=== PATIENT | male | born 1940 | race African-American/Black ===

== ENCOUNTER 2018-12-07 15:50 | Inpatient (IN) | payer OTHER ==
[~2018-12-07] VITALS: Ht 170.2 cm; Wt 109.3 kg
[~2018-12-07 15:50] MED LIST: ACETAMINOPHEN-1 EAC1 PO; AGGRENOX 25 MG1 EACH PO; ALLOPURINOL 10100 M1 PO; APAP500 PO; ARICEPT 5 MG TAB5 MG PO; ASPIR 8181 M1 PO; CARVEDILOL12.5 MG PO; CLARITIN10 MG PO; DIABETA 5MG TABL5 MG PO; FLOMAX0.4 MG PO; GLUCOTROL5 MG PO; HYDRALAZINE 5050 MG PO; HYDROCODONE-AP1 EAC6 PO; IMDUR 60 MG TAB60 M1 PO; IRON325 PO; KLOR-CON 1010 MEQ PO; LASIX 40 MG TAB40 M2 PO; LIPITOR 20 MG T20 M1 PO; LISINOPRIL20 MG PO; METFORMIN HCL500 MG PO; NOVOLOG100 UNIT/1 SUBQ; PLAVIX 75 MG TA75 M1 PO; PRAVACHOL40 MG PO; RANEXA500 MG PO; TOPROL XL100 MG PO; VITAMIN D1000 UNI1 PO
[2018-12-07 15:54] VITALS: BP 147/81
[2018-12-07 17:03] LABS: ABSOLUTE NEUTROPHILS 14.6 thou/uL (1.4-8.2); EOSINOPHILS 0.2 % (0.0-3.0); HEMATOCRIT 36.5 % (42.0-52.0); HEMOGLOBIN 12.1 gm/dL (14.0-18.0); LYMPHOCYTES 17.3 % (24.0-44.0); MCHC 33.1 g/dL (28.0-37.0); MCV 75.6 fL (80.0-100.0); MONOCYTES 6.2 % (1.0-8.0); PLATELET COUNT 329 thou/uL (150-400); POLYS 75.3 % (36.0-66.0); RBC 4.82 mil/uL (4.50-6.00); RDW 20.1 % (10.5-14.5); WBC 19.4 thou/uL (4.0-11.0)
[2018-12-07 17:15] LABS: ANION GAP 7 mmol/L (7-16); BUN 16 mg/dL (7-18); CHLORIDE 101 mmol/L (98-107); CO2 27 mmol/L (21-32); CREATININE 1.7 mg/dL (0.7-1.3); GLUCOSE 186 mg/dL (74-106); POTASSIUM 4.9 mmol/L (3.5-5.1); SODIUM 135 mmol/L (136-145)
[2018-12-07 17:17] LABS: ICTOTEST (BILI CONFIRMATORY) Negative (Negative); URINE BILIRUBIN NEGATIVE (Negative); URINE BLOOD 3+ (Negative); URINE CLARITY CLOUDY; URINE COLOR AMBER; URINE GLUCOSE-RANDOM* NEGATIVE (Negative); URINE KETONES NEGATIVE (Negative); URINE LEUKOCYTES 3+ (Negative); URINE NITRITE POSITIVE (Negative); URINE PROTEIN (DIPSTICK) 2+ (Negative)
[2018-12-07 17:24] LABS: CASTS None Seen /LPF (None Seen); CRYSTALS None Seen /LPF (None Seen); SQUAMOUS None Seen /LPF (0-3); URINE RBC >20 Many /HPF (0-2)
[2018-12-07 17:25] LABS: ALBUMIN 3.3 g/dL (3.4-5.0); LIPASE 74 U/L (73-393); SGOT 31 U/L (15-37); SGPT 26 U/L (30-65); TOTAL BILIRUBIN 0.7 mg/dL (<0.1-1.0); TOTAL PROTEIN 7.9 g/dL (6.4-8.2); TROPONIN-I <0.06 ng/mL (<0.06)
[2018-12-07 18:20] LABS: ANISOCYTOSIS 1+; POLYCHROMASIA OCCASIONAL
[2018-12-07 18:21] LABS: TARGET CELLS OCCASIONAL
[2018-12-07 18:22] LABS: LARGE PLATELETS OCCASIONAL; MICROCYTES 1+
[2018-12-07 18:42] VITALS: BP 151/74
--- NOTE | 2018-12-07 20:59 | NUR ---
ATTEMPTED TO CALL REPORT AT 2044. NURSE NOT AVAILABLE AND IS TO CALL BACK
[2018-12-07 21:23] VITALS: BP 159/72
[2018-12-07 22:03] VITALS: BP 162/81
[2018-12-07] MEDS ORDERED: AMLODIPINE BESY10 MG PO (22:51)
[2018-12-07] MEDS ORDERED: LIPITOR 20 MG T20 M1 PO (22:53)
[2018-12-07] MEDS ORDERED: COLACE100 MG PO (22:54)
[2018-12-07] MEDS ORDERED: RENA-VITE RX T1 EACH PO (22:55)
[2018-12-07] MEDS ORDERED: FOLGARD TABLET1 EAC1 PO (22:56)
[2018-12-07] MEDS ORDERED: LANTUS100 UNIT/M SUBQ (22:57)
[2018-12-08] VITALS (7 sets, daily range): BP systolic 109–153; BP diastolic 61–85
--- NOTE | 2018-12-08 02:36 | NUR ---
Admission history and assessments completed. Careplan initiated. IVfluids infusing. Incontinent of bowel and bladder. External male catheter placed. Turned to sides. High fall risks, fall precautions in place. Patient has dementia, confused, unable to sign consent forms.
--- NOTE | 2018-12-08 04:20 | NUR ---
Temp spiked to 101.4 orally. Treated with Tylenol. Patient on abx and blood cultures done on admission.
[2018-12-08 05:49] LABS: ABSOLUTE NEUTROPHILS 14.5 thou/uL (1.4-8.2); BASOPHILS 0.3 % (0.0-2.0); HEMATOCRIT 33.2 % (42.0-52.0); HEMOGLOBIN 11.2 gm/dL (14.0-18.0); MCH 25.2 pg (26.0-34.0); MCHC 33.7 g/dL (28.0-37.0); MCV 74.7 fL (80.0-100.0); MONOCYTES 8.8 % (1.0-8.0); PLATELET COUNT 281 thou/uL (150-400); POLYS 75.9 % (36.0-66.0); RBC 4.44 mil/uL (4.50-6.00); RDW 20.1 % (10.5-14.5); WBC 19.1 thou/uL (4.0-11.0)
--- NOTE | 2018-12-08 05:51 | NUR ---
Paroxysmal SVT rate up to 140/on [facility]. Rhythm back to sinus when EKG done. Fever down to 100.5
[2018-12-08 05:57] LABS: CALCIUM 8.6 mg/dL (8.5-10.1); CREATININE 1.8 mg/dL (0.7-1.3); MAGNESIUM 1.6 mg/dL (1.8-2.4)
[2018-12-08 06:12] LABS: POTASSIUM 3.8 mmol/L (3.5-5.1)
[2018-12-08 08:06] LABS: CHOLESTEROL 91 mg/dL (<200); HDL CHOLESTEROL 35 mg/dL (>40); LDL CHOLESTEROL 43 mg/dL (<100); TC:HDL 2.6 Ratio (Not establshd); TRIGLYCERIDE 67 mg/dL (<150); VLDL 13 mg/dL (<40)
--- NOTE | 2018-12-08 08:27 | EKG ---
[address] [address] ELECTROCARDIOGRAM REPORT Name: LUIS MANUEL RIZO Room #: 355-P ADM IN M.R.#: [id number] Admission: 12/07/18 Attend Phys: Jameel Oreilly MD Discharge: Date of : 36 Report #: [id number] THIS REPORT FOR: //name// [facility] ED Test Date: 2018-12-07 Test Time: 16:08:45 Pat Name: LUIS MANUEL RIZO Department: Room: 355 Gender: M Digital Project Coordinator: ND : 1940 Requested By: Kory Oneill Order Number: [id number] MD: Eladio Smith Measurements Intervals [place] Rate: 101 P: 17 [place]: 199 QRS: -52 QRSD: 121 T: 100 QT: 356 QTc: 462 Interpretive Statements Sinus tachycardia Atrial premature complex Right ventricular conduction delay Nonspecific T abnormalities Baseline wander in lead(s) V2 Compared to ECG 06/23/2014 07:24:54 Atrial premature complex(es) now present Nonspecific change in the ST and T-wave segments Electronically Signed On 12-08-2018 8:26:41 CDT by Eladio Smith [email or web address] <ELECTRONICALLY SIGNED> By: Eladio Smith MD, [facility] 12/08/18 0826 1608 1608 Eladio Smith MD, [facility] /EPI
--- NOTE | 2018-12-08 08:34 | EKG ---
[address] [address] ELECTROCARDIOGRAM REPORT Name: LUIS MANUEL RIZO Room #: 355-P ADM IN M.R.#: [id number] Admission: 12/07/18 Attend Phys: Jameel Oreilly MD Discharge: Date of : 38 Report #: [id number] THIS REPORT FOR: //name// [facility] Test Date: 2018-12-08 Test Time: 05:51:39 Pat Name: LUIS MANUEL RIZO Department: Room: 355 P Gender: M Twist Tester: [id number] : 1940 Requested By: Katie Lawler Order Number: [id number] MD: Eladio Smith Measurements Intervals [place] Rate: 102 P: 45 [place]: 187 QRS: -50 QRSD: 129 T: 103 QT: 364 QTc: 475 Interpretive Statements Sinus tachycardia Atrial premature complexes Early R-wave progression Left anterior hemiblock Nonspecific T abnormalities Compared to ECG 06/23/2014 07:24:54 Atrial premature complex(es) now present Electronically Signed On 12-08-2018 8:34:29 CDT by Eladio Smith [email or web address] <ELECTRONICALLY SIGNED> By: Eladio Smith MD, [facility] 12/08/18 0834 0551 0551 Eladio Smith MD, [facility] /EPI
[2018-12-08] MEDS ORDERED: CARVEDILOL3.125 MG PO (09:07)
[2018-12-08] MEDS ORDERED: LISINOPRIL10 MG PO (09:09)
[2018-12-08] MEDS ORDERED: VITAMIN D1000 UNI1 PO (09:11)
[2018-12-08] MEDS ORDERED: NOVOLOG100 UNIT/1 SUBQ (09:11)
[2018-12-08] MEDS ORDERED: GLUCAGEN1 M2 INJECTION (09:14)
[2018-12-08] MEDS ORDERED: IPRAT-ALBUT 0.5-3 ML INH (09:15)
[2018-12-08] MEDS ORDERED: HYDRALAZINE 2525 M1 PO (09:17)
[2018-12-08] MEDS ORDERED: SENNA PLUS TAB1 EACH PO (09:18)
[2018-12-08] MEDS ORDERED: BISACODYL10 MG RECTAL (09:19)
--- NOTE | 2018-12-08 09:41 | NUR ---
Nutrition: Pt admitted with AMS, Sepsis related to UTI. Notified of low regina score. No active wounds, all healed per nsg. Right sided droop, CT head negative. No weight hx, currently BMI 37 obesity class 2. Hx dementia, DM, CVA, CABG. Currently confused and inappropriate to interview. Ate 1 biscuit at breakfast this am on regular diet. BG 159-174 with hx of DM. Consider add carb controlled if po improves/BG remain elevated. Will follow for adequacy of intake but place as low risk at this time.
--- NOTE | 2018-12-08 12:25 | NUR ---
Patient if from [facility], dp sent [facility] information on lakesha alvarez unknown at this time. DP contacted Jaswinder from [facility] to let her know.
--- NOTE | 2018-12-08 13:22 | NUR ---
INITIAL ASSESSMENT: Received consult as pt is from [facility]. LINDA reviewed chart and spoke with nursing and attending physician. Pt was admitted due to AMS/UTI/Sepsis. Pt with hx of Dementia/CVA/DM. Pt was febrile earlier today. LINDA spoke with pt's sister, Kemar, via phone. Introduced role of LINDA. 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 Pt has lived at [facility] for about 4 1/2 years. Pt is normally w/c bound. Kemar confirms plan is to return to [facility] when medically stable. internet media planner to send info to [facility] for review. LINDA is following to assist as needed with discharge planning.
[2018-12-08 15:32] LABS: TSH 1.059 uIU/mL (0.358-3.740)
--- NOTE | 2018-12-08 18:43 | NUR ---
PT MORE ALERT THIS AFTERNOON, PT TURNED THROUGHOUT THE DAY AND EXTERNAL CATHETER IN PLACE DRAINING WELL.
[2018-12-09 03:20] VITALS: BP 119/63
--- NOTE | 2018-12-09 03:27 | NUR ---
ASSUMED CARE FROM DAY SHIFT , PT RESTING IN BED , TURNED EVERY 2 HOURS PT YELLS AND CURSING WHEN TURNED , IV FLUIDS INFUSING WELL PER PUMP , DIRECTOR FIXED INCOME SHOWS NSR WITH EPISODES OF SVT VSS PT TOLERATING WELL. PT RESTED WELL THROUGHOUT HOURLY ROUNDS, WILL CONINTUE TO MONITOR AND WILL REPORT CHANGES OR ABNORMAL FINDINGS.
[2018-12-09 07:48] VITALS: BP 123/66
--- NOTE | 2018-12-09 12:07 | NUR ---
ENRIQUE called Cristiane from [facility] to let her know patient will likely dc this Wednesday, and they can take him back if he does go then.
--- NOTE | 2018-12-09 12:42 | NUR ---
LINDA reviewed chart and spoke with nursing and attending physician. Pt is progressing towards goals for discharge. Possible weekend discharge anticipated back to [facility]. medical planner notified [facility] liaison, who confirms they are able to accept pt if he is ready for discharge. LINDA left voice message for pt's sister, Kemar ([phone]) to provide update and notify of anticipated discharge timeframe. Chart will need to be copied and final discharge orders/summary and will need to be faxed to [facility] when available. LINDA is available to assist as needed with discharge planning. [facility]-- (Admissions) [phone] (Facility)
--- NOTE | 2018-12-09 13:06 | NUR ---
PT A&OX2-3 SLIGHT CONFUSION, MRI COMPLETED TODAY, TOLERATING DIET, MEDICATION/FLUIDS GIVEN ORDERED. EXTERNAL CATH IN PLACE, URINE TEA COLERED, NO COMPLAINTS OF BURNING OR S/S R/T UTI. PATIENT TO DISCHARGE TO . WILL CONTINUE TO MONITOR.
[2018-12-09 13:55] LABS: HEMATOCRIT 31.1 % (42.0-52.0); HEMOGLOBIN 10.3 gm/dL (14.0-18.0); MCH 25.1 pg (26.0-34.0); MCHC 33.3 g/dL (28.0-37.0); MCV 75.5 fL (80.0-100.0); RBC 4.11 mil/uL (4.50-6.00); RDW 20.2 % (10.5-14.5); WBC 16.5 thou/uL (4.0-11.0)
[2018-12-09 14:03] LABS: CALCIUM 8.5 mg/dL (8.5-10.1); CREATININE 1.8 mg/dL (0.7-1.3); MAGNESIUM 1.7 mg/dL (1.8-2.4); POTASSIUM 4.2 mmol/L (3.5-5.1)
[2018-12-09 15:15] VITALS: BP 118/66
[2018-12-09 17:16] VITALS: BP 148/65
--- NOTE | 2018-12-09 18:38 | NUR ---
PT ARRIVED ON UNIT AT 1710. PT ALERT XS 4. NO PAIN OR RESP DISTRESS, VS TAKEN AND IN CHART. IV FLUIDS INFUSING ORDERED. BLOOD SUGAR CHECKED, S/S NOT INDICATED. CONDOM CATH TO D/D. PT SERVED DINNER. HAS RIGHT UPPER ARM IV.
[2018-12-09 20:50] VITALS: BP 129/60
[2018-12-10 03:35] VITALS: BP 146/64
--- NOTE | 2018-12-10 07:33 | NUR ---
PT IS ALERT TO SELF AND PLACE. FORGETFUL-COULD NOT TELL THE YEAR NOR NAME OF HOSPITAL. PT HAS SOME DIFFICULTY IN SPEECH.SOME SLURRING. NO SWALLOWING ISSUES. SOME WEAKNESS TO R SIDE. PT NEEDS ASSISTANCE TO REPOSITION. [place] CATH IN PLACE WITH ADEQUATE URINE OUTPUT.AFEBRILE. EDEMA TO BLE-ELEVATED ON PILLOWS. PT CONTINUES ON IVF. FALL PREC IN PLACE, HE CALLS FOR HELP. NO FURTHER CONCERNS.
[2018-12-10 07:52] LABS: HEMATOCRIT 29.8 % (42.0-52.0); HEMOGLOBIN 9.8 gm/dL (14.0-18.0); MCH 24.7 pg (26.0-34.0); MCHC 32.9 g/dL (28.0-37.0); MCV 75.1 fL (80.0-100.0); RBC 3.97 mil/uL (4.50-6.00); RDW 20.4 % (10.5-14.5); WBC 11.2 thou/uL (4.0-11.0)
[2018-12-10 07:53] VITALS: BP 141/69
[2018-12-10 08:04] LABS: CALCIUM 8.6 mg/dL (8.5-10.1); CREATININE 1.5 mg/dL (0.7-1.3); MAGNESIUM 1.7 mg/dL (1.8-2.4); POTASSIUM 3.9 mmol/L (3.5-5.1)
--- NOTE | 2018-12-10 18:30 | NUR ---
Patient has spent the entire shift in bed. He is able to turn et reposition himself minimally. Patient has consumed 100% of all meals. He was given a bed bath. His Condom Catheter burst at the penile tip, therefore, a new catheter has been put into place. Patient has no open areas on his skin. Patient's IV Normal Saline 0.9% has been put on hold until further notice. Will continue to monitor and report to on-coming nurse.
--- NOTE | 2018-12-10 19:26 | NUR ---
PT ALERT XS 2-3 HAS FORGETFULNESS AT TIMES. BLOOD SUGARS CHECKED AND S/S INSULIN ORDERED. PT'S FAMILY HERE TO VISIT. IV FLUIDS ON HOLD. WAS GIVEN IV MAG TODAY LAB ORDERED TO HAVE MAG CHECKED.
[2018-12-10 21:37] VITALS: BP 140/74
--- NOTE | 2018-12-11 03:27 | NUR ---
ASSESMENT COMPLETED.PT DENIED PAIN SO FAR.CONDOM CATH STILL IN PLACE.PT REF INSULIN AT HS.IVF STIL ON HOLD.PT REPOSITIONED WHILE IN BED.PT RESTING ON HIS BED AT THIS TIME.FALL PREACUTIONS IN PLACE,CALL LIGHT WITHIN REACH.
[2018-12-11 04:00] VITALS: BP 170/82
[2018-12-11 05:13] LABS: HEMATOCRIT 30.5 % (42.0-52.0); HEMOGLOBIN 10.3 gm/dL (14.0-18.0); MCH 25.2 pg (26.0-34.0); MCHC 33.6 g/dL (28.0-37.0); RBC 4.07 mil/uL (4.50-6.00); RDW 20.2 % (10.5-14.5); WBC 9.8 thou/uL (4.0-11.0)
[2018-12-11 05:32] LABS: CALCIUM 8.6 mg/dL (8.5-10.1); CREATININE 1.5 mg/dL (0.7-1.3); MAGNESIUM 2.1 mg/dL (1.8-2.4); POTASSIUM 4.2 mmol/L (3.5-5.1)
[2018-12-11 07:40] VITALS: BP 173/83
--- NOTE | 2018-12-11 10:50 | NUR ---
ASSUMED CARE AT 0710, SHIFT ASSESSMENT DONE, BP ELEVATED, BP MEDS GIVEN THIS AM. DENIES PAIN, NAUSEA, VOMITING. Q2T PER DOCUMENTATION. FACILITY INDICATED THEY ARE ABLE TO ACCEPT PT TODAY, DR LIPSCOMB NOTIFIED. WILL PUT IN DC ORDER, NURSE TO CALL [facility] TO ARRANGE FOR TRNASPORTATION.
[2018-12-11] MEDS ORDERED: CEFDINIR300 MG PO (12:08)
[2018-12-11 15:35] VITALS: BP 137/61
[2018-12-11 17:48] VITALS: BP 137/61
--- NOTE | 2018-12-11 18:04 | NUR ---
Transportation called and stated will pick patient up with stretcher van between [id number]. Pt aware.
== END 2018-12-11 18:39 | DRG 872 ==
LOC: ER 15:50 → 3W 18:41 → EROBS 18:41 → 3W 21:22 → 4E 12-09 16:45
PROVIDERS: Emergency Medicine; Nurse Practitioner; ADMIT Internal Medicine
DX: A41.9 Sepsis, unspecified organism (principal); N39.0 Urinary tract infection, site not specified; N17.9 Acute kidney failure, unspecified; R29.810 Facial weakness; I25.10 Atherosclerotic heart disease of native coronary artery without angina pectoris; F03.90 Unspecified dementia, unspecified severity, without behavioral disturbance, psychotic disturbance, mood disturbance, and anxiety; N40.0 Benign prostatic hyperplasia without lower urinary tract symptoms; E78.5 Hyperlipidemia, unspecified; Z66 Do not resuscitate; I12.9 Hypertensive chronic kidney disease with stage 1 through stage 4 chronic kidney disease, or unspecified chronic kidney disease; N18.9 Chronic kidney disease, unspecified; E11.22 Type 2 diabetes mellitus with diabetic chronic kidney disease; Z86.73 Personal history of transient ischemic attack (TIA), and cerebral infarction without residual deficits; Z95.1 Presence of aortocoronary bypass graft; I25.2 Old myocardial infarction; Z87.891 Personal history of nicotine dependence; Z79.899 Other long term (current) drug therapy; Z79.4 Long term (current) use of insulin; Z79.82 Long term (current) use of aspirin; Z79.84 Long term (current) use of oral hypoglycemic drugs
CPT/HCPCS: 10783; 10879

== ENCOUNTER 2018-12-27 14:21 | Inpatient (IN) | payer OTHER ==
[~2018-12-27] VITALS: Ht 172.7 cm; Wt 115.8 kg
--- NOTE | ~2018-12-27 | EEG ---
[facility] [place] [address] ELECTROENCEPHALOGRAM Name: LUIS MANUEL RIZO Room #: 207-P ADM IN M.R.#: [id number] Admission: 12/27/18 Attend Phys: Pebbles Cheney Discharge: Date of : 38 Report #: [id number] THIS REPORT FOR: //name// CC: Pebbles Austin DATE OF SERVICE: 12/28/2018 This patient is being evaluated for altered mental status. EEG was done by placing the electrodes by standard 10-20 system of electrode placement. Both referential and sequential montages were used for recording. Background activity in this patient's EEG is about 8-9 Hz and 30 microvolt. The patient became drowsy and that is associated with bilateral slowing and vertex sharp waves. Photic stimulation is unremarkable. Even in the baseline, the patient appeared to have intermittent slowing, which is intermixed with the background. IMPRESSION: Moderately abnormal EEG because it is intermixed with theta range slowing. That is a nonspecific abnormality, which can occur with encephalopathy, effect of psychotropic medication, dementia, etc. No active epileptiform activity was noticed during this record. Thank you very much for this referral. By: 1842 1855 Salinas Gonzalez MD /nt
--- NOTE | ~2018-12-27 | HC ---
[facility] [place] [address] CONSULTATION Name: LUIS MANUEL RIZO Room #: 207-P ADM IN M.R.#: [id number] Admission: 12/27/18 Attend Phys: Pebbles Patrick Discharge: Date of : 38 Report #: [id number] THIS REPORT FOR: //name// CC: [facility] DATE OF SERVICE: 12/27/2018 HISTORY OF PRESENT ILLNESS: This is an 78-year-old male patient who was seen by me for altered mental status. The patient is not in a good mood. He was pretty irritable. He will not give me a history, and I tried to find out why he is not feeling good, but he did not give me a good history and he did not cooperate. I do not know how long his memory problem is going on. It looks like he was here in the hospital in December. He was seen by Dr. Hunt for neurological consultation. At that time, he was admitted with urinary tract infection. He did have an MRI at that time and the MRI indicated chronic changes, but no acute changes. The history I got is from the record because the patient neither cooperates with the examination nor gives a good history. REVIEW OF SYSTEMS: Indicate the patient had some altered mental status. One of the records indicates he has a prior history of IV drug abuse. He has a history of CO, hypertension, dementia, coronary artery disease, diabetes. He had some chronic cerebellar stroke. That was his 14-point review of system, the best I can carry out because he does not cooperate. PAST MEDICAL HISTORY: Appeared to be positive for dementia. FAMILY HISTORY: Negative for early age stroke. SOCIAL HISTORY: He has smoked in the past. PHYSICAL EXAMINATION: Indicates he is alert. His speech is intact, but when I asked him what month it is, he becomes agitated and does not give any answer. He did not tell me what hospital he is in. His cranial nerve examination was attempted and he did not cooperate, but I did not see any focality. He moves all 4 extremities. He has a depigmentation in the lower extremities. He moves all 4 extremities slowly. I tried to do the position sense; he will not cooperate, neither he will cooperate with the cerebellar sign. Cardiac examinations appear noncontributory. He does not appear to be in any respiratory difficulty. Pulses are difficult to feel. His blood pressure is 122/68, pulse is 80, temperature is 98.6. LABORATORY DATA: His white count is normal at 8.9. Urine is negative. He did have a CT scan of the head on admission that did not show any acute changes. CT angiography was also done, looks like in the Emergency Room, that shows multiple abnormalities, but nothing which can explain the patient's symptoms. He had a [facility] [address] [place] [address] CONSULTATION Name: LUIS MANUEL RIZO DAVID Room #: 207-P [facility] IN M.R.#: [id number] Admission: 12/27/18 Attend Phys: Pebbles Patrick Discharge: Date of : 38 Report #: [id number] TSH and vitamin B12 done recently and that was unremarkable. IMPRESSION: This patient appeared to have a significant dementia. I think the main thing which needs to be addressed is how aggressive to be on him and his living arrangement. I do not think he is safe to live alone, but we will try to reexamine him tomorrow and see if we can get anywhere. We will also try to get a neuropsychological evaluation to see if anything can be done in that regard. By: 1257 0008 Salinas Gonzalez MD /nt
[~2018-12-27 14:21] MED LIST changes: +AMLODIPINE BESY10 MG PO; +BISACODYL10 MG RECTAL; +CARVEDILOL3.125 MG PO; +CEFDINIR300 MG PO; +COLACE100 MG PO; +FOLGARD TABLET1 EAC1 PO; +GLUCAGEN1 M2 INJECTION; +HYDRALAZINE 2525 M1 PO; +IPRAT-ALBUT 0.5-3 ML INH; +LANTUS100 UNIT/M SUBQ; +LISINOPRIL10 MG PO; +RENA-VITE RX T1 EACH PO; +SENNA PLUS TAB1 EACH PO
[2018-12-27 14:22] VITALS: BP 115/58
[2018-12-27 14:50] LABS: HEMOGLOBIN 9.8 gm/dL (14.0-18.0); MCH 25.5 pg (26.0-34.0); MCHC 33.6 g/dL (28.0-37.0); MCV 75.9 fL (80.0-100.0); PLATELET COUNT 266 thou/uL (150-400); RBC 3.83 mil/uL (4.50-6.00); RDW 20.6 % (10.5-14.5); WBC 8.9 thou/uL (4.0-11.0)
[2018-12-27 15:04] LABS: ANION GAP 10 mmol/L (7-16); BUN 20 mg/dL (7-18); CALCIUM 9.2 mg/dL (8.5-10.1); CHLORIDE 102 mmol/L (98-107); CO2 25 mmol/L (21-32); CREATININE 1.8 mg/dL (0.7-1.3); GLUCOSE 134 mg/dL (74-106); POTASSIUM 3.7 mmol/L (3.5-5.1); SODIUM 137 mmol/L (136-145)
[2018-12-27 15:13] LABS: MAGNESIUM 1.9 mg/dL (1.8-2.4); TROPONIN-I <0.06 ng/mL (<0.06)
[2018-12-27 15:16] LABS: ABSOLUTE NEUTROPHILS 2.9 thou/uL (1.4-8.2); ANISOCYTOSIS 1+; HYPOCHROMASIA SLIGHT; MICROCYTES 1+
[2018-12-27 16:27] LABS: URINE BILIRUBIN NEGATIVE (Negative); URINE BLOOD NEGATIVE (Negative); URINE CLARITY CLEAR; URINE COLOR YELLOW; URINE GLUCOSE-RANDOM* NEGATIVE (Negative); URINE KETONES NEGATIVE (Negative); URINE LEUKOCYTES-REFLEX NEGATIVE (Negative); URINE NITRITE-REFLEX NEGATIVE (Negative); URINE PROTEIN (DIPSTICK) TRACE (Negative); URINE SPECIFIC GRAVITY >= 1.030 (1.005-1.035)
[2018-12-27 16:35] LABS: AMP/METHAMP Negative (Negative); BARBITURATES Negative (Negative); BENZODIAZEPINES Negative (Negative); COCAINE Negative (Negative); METHADONE Negative (Negative); OPIATES Negative (Negative); PCP Negative (Negative)
[2018-12-27 18:03] VITALS: BP 139/71
[2018-12-27 18:45] VITALS: BP 140/54
[2018-12-27 20:00] VITALS: BP 133/62
[2018-12-28] VITALS: BP 148/67
[2018-12-28 03:36] VITALS: BP 152/72
--- NOTE | 2018-12-28 05:02 | NUR ---
ASSESSMENT: PT ARRIVED EARLIER TO THE UNIT AT APPROXIMATEY 2000 FROM ED, ACCOMPANIED BY STAFF MEMBERS. PT IS ALERT TIMES 1-2. CAN BE FORGETFUL AND CONFUSED AT TIMES. DID NOT KNOW THE NAME OF THE HOSPITAL, TOOK HIM A WHILE TO STATE HIS SISTERS NAME WHICH IS HIS BPOA. VSS, AFEBRILE. BP SLIGHTLY ELEVATED. PT IS FUSSY AND IS ADAMANT ABOUT NOT HAVING A SECOND IV PLACED FOR CT OF HEAD WITH CONTRAST. CURRENT IV WORKED AFTER A LOT OF ENCOURAGEMENT WAS GIVEN. PT IS INCONTINENT FOR BOWEL AND BLADDER, A CONDEM CATHETER PLACED. DID HAVE A MEDIUM BM. PT IS A DNR. BING BROWN WAS AT THE BEDSIDE. SR PER MONITOR, WILL CONTINUE TO MONITOR.
[2018-12-28 07:29] VITALS: BP 138/72
--- NOTE | 2018-12-28 08:02 | EKG ---
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
[2018-12-28 11:40] VITALS: BP 122/68
--- NOTE | 2018-12-28 13:46 | NUR ---
Attempted to meet with patient who was transporting to scan. Patient admits from [facility] with possible seizures. Patient with recent dc Dec 11/2019 from [facility]. Patient has dementia. Sp with Sister Kemar and reviewed role of casemgt. Plan to update [facility] patient is ltc at facility. Casmemgt following.
[2018-12-28 16:42] VITALS: BP 130/72
--- NOTE | 2018-12-28 16:58 | NUR ---
ASSUMED CARE OF PT SHIFT CHANGE. ASSESSMENTS CHARTED. MEDS GIVEN PER MAR. PT ORIENTED TO SELF AND SOMETIMES PLACE. INCONTINENT OF BOWEL AND BLADDER. CONDOM CATHETER IN PLACE. NO C/O PAIN. ON RA WITH NO SOB OBSERVED. WILL CONTINUE TO MONITOR AND FOLLOW POC.
[2018-12-28 19:45] VITALS: BP 145/73
--- NOTE | 2018-12-28 23:24 | NUR ---
RECEIVED PT'S CARE AT 1920; PT. ON BED; ALERT; AWAKE; WATCHING TV; DURING ASSESSMENT NO C/O PAIN; ALERT TO PERSON; HS MEDICATION GIVEN; ST. "I AM WAITING FOR MY DINNER"; INFORMED DINNER ATE EARLIER; SNACKS GIVEN; COMPLETE BED CHAGED; INCONTINEN; HAD BM; AROUND 2200 CARE TRANSFER TO NURSE OLSON;
[2018-12-29 04:19] VITALS: BP 127/62
[2018-12-29 08:00] VITALS: BP 150/78
--- NOTE | 2018-12-29 10:40 | NUR ---
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 Chart copy in progress. DC associate merchandise planner to fax orders and arrange stretcher transport. Nursing to call report. Bait Maker has notified his sister Kemar Hall of his dc and [facility]. She will let the rest of his family know and she will try to see him there later today.
[2018-12-29 11:16] LABS: CALCIUM 8.9 mg/dL (8.5-10.1); CREATININE 1.8 mg/dL (0.7-1.3); POTASSIUM 3.8 mmol/L (3.5-5.1)
[2018-12-29 11:40] VITALS: BP 119/59
--- NOTE | 2018-12-29 12:14 | NUR ---
PT CARE ASSUMED APPROX 0700. PT ALERT AND ORIENTED X1 SELF ONLY. FOLLOWS COMMANDS. PT DENIES PAIN AND SOA. VSS. BS WNL. REFUSED TO TURN THIS AM. PT TO DISCHARGE AT THIS TIME. REPORT CALLED TO RECEIVING FACILITY. RECEIVING NURSE DENIES QUESTIONS OR CONCERNS REGARDING HANDOFF INFO. IV OUT, TELE OFF. CHART COPIED AND TO TRAVEL WITH PT VIA STRETCHER VAN. CASE MANAGEMENT REPORTS HAVING SPOKEN TO FAMILY REGARDING DISCHARGE. NO DISTRESS NOTED. ALL BELONGINGS IN PACKED AND IN BED WITH PT.
[2018-12-29 14:45] VITALS: BP 149/74
== END 2018-12-29 17:52 | DRG 72 ==
LOC: ER 14:21 → EROBS 17:53 → 2N 17:53
PROVIDERS: Emergency Medicine; Psychiatry & Neurology Neuromuscular Medicine; ADMIT Hospitalist
DX: G93.41 Metabolic encephalopathy (principal); R56.9 Unspecified convulsions; F03.90 Unspecified dementia, unspecified severity, without behavioral disturbance, psychotic disturbance, mood disturbance, and anxiety; N18.3 Chronic kidney disease, stage 3 (moderate); I25.10 Atherosclerotic heart disease of native coronary artery without angina pectoris; E11.22 Type 2 diabetes mellitus with diabetic chronic kidney disease; F14.90 Cocaine use, unspecified, uncomplicated; M19.90 Unspecified osteoarthritis, unspecified site; D50.9 Iron deficiency anemia, unspecified; I12.9 Hypertensive chronic kidney disease with stage 1 through stage 4 chronic kidney disease, or unspecified chronic kidney disease; N18.9 Chronic kidney disease, unspecified; Z79.82 Long term (current) use of aspirin; Z79.899 Other long term (current) drug therapy; I25.2 Old myocardial infarction; Z95.1 Presence of aortocoronary bypass graft; Z86.73 Personal history of transient ischemic attack (TIA), and cerebral infarction without residual deficits; Z87.891 Personal history of nicotine dependence
CPT/HCPCS: 10081

== ENCOUNTER 2020-04-23 20:29 | Emergency (ER) | payer OTHER, MEDICAID ==
[~2020-04-23] VITALS: Ht 165.1 cm; Wt 106.6 kg
--- NOTE | ~2020-04-23 | EMS ---
[address] [address] EMS Patient Care Report Name: LUIS MANUEL RIZO Room #: DEP ANDREZ Jerome#: [id number] Admission: 04/23/20 Attend Phys: Discharge: 04/24/20 Date of : 36 Report #: [id number] THIS REPORT FOR: //name// Report Transmitted: 04/24/2020 07:02 EMS Care Summary [facility] MED-ACT Incident [id number] @ 04/23/2020 19:41 Incident Location [address] [place] [address] Patient LUIS MANUEL RIZO Male, 79 Years 1940 Patient Address [address] [place] [address] Patient History Angina,Congestive Heart Failure (CHF),Hypertension (HTN),Stroke/CVA,Substance Abuse,Hyperlipidemia,Arthritis,Anemia,Chronic Kidney Disease,Type 2 Diabetes, Patient Allergies No known allergies, Patient Medications Coreg, Tylenol, Tamsulosin, DuoNeb, Cholecalciferol, Docusate Sodium, Albuterol, Famotidine, Glucagon, Senna, Apixaban, Atorvastatin, Amlodipine, Lantus, Ferrous Sulfate, Loratadine, Aspirin, Novolog, Aricept, Chief Complaint Unconscious/ Unresponsive Disposition Transported No Lights/[place] Dispatch Reason Unconscious/Fainting Transported To [address] [address] EMS Patient Care Report Name: LUIS MANUEL RIZO Room #: DEP [facility]#: [id number] Admission: 04/23/20 Attend Phys: Discharge: 04/24/20 Date of : 36 Report #: [id number] Narrative Paramedics requested for an 79yom that healthcare providers state is unresponsive. On arrival, paramedics don their appropriate PPE and attempt entrance into the facility. Access is not immediately obtained, therefore, there is a delay in patient contact. Paramedics are escorted to the room of the patient who is found laying in bed, supine, and obtunded. He does not respond to verbal or painful stimuli and has sonorous, labored breathing. His initial SpO2 is less than 85% on room air and paramedics immediately begin to prepare for supplemental oxygen delivery. 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 On arrival to their unit, he began complaining of pain and complained to multiple providers before, the fire chief's aide administered 2x Tylenol. He was responsive and conversable at that time. They do not know how long he has been unresponsive and in respiratory distress progressing to respiratory failure. The patient's pupils are appreciated to be constricted and the staff is questioned regarding narcotic use and/or administration. They state they have not given the patient narcotics. On his medical history, it does say the patient has a history of cocaine abuse and he had a visitor earlier in the day. His roommate, however, adamantly believes that he has not done any illicit drugs. With intermittent ventilatory assist, IV access is attempted and failed. It is determined that the patient is to be given Narcan intranasally as documented in this report. After the 1st administration of 1mg of Narcan IN, the patient becomes more arousable and begins to breathe on his own more appropriately. He still has periods of apnea where assisted ventilation is required. It is then determined, the patient should be given a 2nd dose of 1mg of Narcan IN. This dose wakes him up completely and he begins to track paramedics during the course of his care. He is moved to the stretcher via a draw sheet pull and makes incomprehensible sounds of pain during the transfer. He is restrained according to local protocol. On arrival in the ambulance, the patient is placed back on the monitor for VS and cardiac monitoring during transport. He is completely alert but refuses to answer questions at all. He is responsive to his name; however, other questions remain unanswered. Once transport is initiated, IV access is attempted once more and failed a second time. His BP begins to drop and he is laid supine in an attempt to supplement his BP which seems to work according to VS documented in this report. Biocom report is given to the receiving facility and questions were answered with no further orders received. On arrival to the receiving facility, the patient is escorted to ER 12, where he is moved to the ER bed by draw sheet assist. Report is given to the receiving facility with all questions answered regarding prehospital care. She verbalizes no questions, comments, or concerns regarding prehospital care. Initial Vitals @19:57P: 34,SpO2: 91, [address] [address] EMS Patient Care Report Name: SALLIELUIS MANUELMIKAELA HERNANDEZ [facility] [id number] Admission: 04/23/20 Attend Phys: Discharge: 04/24/20 Date of : 36 Report #: [id number] @20:18P: 83,BP: 84/62,SpO2: 93, @20:22P: 89,R: 16,BP: 100/60,Pain: 0/10,GCS: 13,SpO2: 93,Revised Trauma: 12, @20:12P: 42, @20:11P: 81,R: 18,BP: 94/60,Pain: 0/10,GCS: 13,SpO2: 89,Revised Trauma: 12,OK Suspected: false @20:02P: 60,SpO2: 74, @19:58P: 59,R: 12,Pain: 0/10,OK Suspected: false @19:51P: 82,R: 4,BP: 76/51,Pain: 0/10,GCS: 4,Temp: 97.3F,Glucose: 85,SpO2: 95,Revised Trauma: 5,OK Suspected: false @20:01P: 79,R: 16,BP: 118/70,Pain: 0/10,GCS: 11,SpO2: 94,Revised Trauma: 11,OK Suspected: false Assessments @20:49MENTAL:Unresponsive,SKIN:HEENT:Eyes: Right: Constricted,Eyes: Left: Constricted,Head/Face: No Abnormalities,Neck/Airway: No Abnormalities,LUNG SOUNDS:General: No Abnormalities,ABDOMEN:General: No Abnormalities,PELVIS//GI:No Abnormalities,EXTREMITIES:Capillary Refill: Right Upper: 4 Sec,Left Arm: No Abnormalities,Right Arm: No Abnormalities,Left Leg: No Abnormalities,Right Leg: No Abnormalities,PULSE:Radial: 1+ Thready,NEURO:No Abnormalities,@20:15MENTAL:Person Oriented,Confused,SKIN:HEENT:Eyes: Left: Constricted,Eyes: Right: Constricted,Head/Face: No Abnormalities,Neck/Airway: No Abnormalities,LUNG SOUNDS:General: No Abnormalities,ABDOMEN:General: No Abnormalities,PELVIS//GI:No Abnormalities,EXTREMITIES:Capillary Refill: Right Upper: < 2 Sec,Left Arm: No Abnormalities,Right Arm: No Abnormalities,Left Leg: No Abnormalities,Right Leg: No Abnormalities,PULSE:Radial: 2+ Normal,NEURO:Slurred Speech, Impression Overdose - Other opioids Procedures @19:5812-Lead ECGResponse: UnchangedSucceeded@20:01Naloxone - 1 Milligrams (mg) - IntranasalResponse: Improved@20:05Naloxone - 1 Milligrams (mg) - IntranasalResponse: Improved@19:57Saline Lock 0cc (20 ga) Site: Hand-RightResponse: UnchangedFailed@20:15Saline Lock 0cc (20 ga) Site: Hand-LeftResponse: UnchangedFailed@20:02Surgical Mask on PatientResponse: Unchanged Timeline 19:39,Call Received 19:39,Psap Call 19:41,Dispatched 19:42,En Route 19:45,On Scene 19:49,At Patient 19:51,BP: 76/51 M,PULSE: 82,RR: 4 R,SPO2: 95 Ox,ETCO2: ,B,PAIN: 0,GCS: 4, [address] [address] EMS Patient Care Report Name: LUIS MANUEL RIZO DAVID Room #: DEP [facility]#: [id number] Admission: 04/23/20 Attend Phys: Discharge: 04/24/20 Date of : 36 Report #: [id number] 19:57,Saline Lock 0cc 20 ga Site: Hand-Right,Response: UnchangedFailed, 19:57,BP: / M,PULSE: 34,RR: R,SPO2: 91 Ox,ETCO2: ,BG: ,PAIN: ,GCS: , 19:58,12-Lead ECG,Response: UnchangedSucceeded, 19:58,BP: / M,PULSE: 59,RR: 12 R,SPO2: Ox,ETCO2: ,BG: ,PAIN: 0,GCS: , 20:01,Naloxone - 1 Milligrams (mg) - Intranasal,Response: Improved 20:01,BP: 118/70 M,PULSE: 79,RR: 16 R,SPO2: 94 Ox,ETCO2: ,BG: ,PAIN: 0,GCS: 11, 20:02,Surgical Mask on Patient,Response: Unchanged 20:02,BP: / M,PULSE: 60,RR: R,SPO2: 74 Ox,ETCO2: ,BG: ,PAIN: ,GCS: , 20:05,Naloxone - 1 Milligrams (mg) - Intranasal,Response: Improved 20:11,BP: 94/60 M,PULSE: 81,RR: 18 R,SPO2: 89 Ox,ETCO2: ,BG: ,PAIN: 0,GCS: 13, 20:12,BP: / M,PULSE: 42,RR: R,SPO2: Ox,ETCO2: ,BG: ,PAIN: ,GCS: , 20:15,Saline Lock 0cc 20 ga Site: Hand-Left,Response: UnchangedFailed, 20:15,Depart Scene 20:18,BP: 84/62 M,PULSE: 83,RR: R,SPO2: 93 Ox,ETCO2: ,BG: ,PAIN: ,GCS: , 20:22,BP: 100/60 M,PULSE: 89,RR: 16 R,SPO2: 93 Ox,ETCO2: ,BG: ,PAIN: 0,GCS: 13, 20:24,At Destination 20:57,Call Closed Disclaimer v1.1 Copyright 2020 [employer] This EMS Care Summary contains data elements from the applicable legal record (which may be displayed differently). It is designed to provide pertinent information for the following purposes: continuity of care, clinical quality, and state data reporting. The complete legal record is available to ED staff and administrators of the receiving hospital in [facility]'s Patient Tracker. All data is provided "as is."
[2020-04-23 21:59] LABS: ABSOLUTE NEUTROPHILS 5.6 thou/uL (1.4-8.2); EOSINOPHILS 1.6 % (0.0-3.0); HEMATOCRIT 27.7 % (42.0-52.0); LYMPHOCYTES 24.5 % (24.0-44.0); MCH 25.6 pg (26.0-34.0); MCHC 32.4 g/dL (28.0-37.0); MONOCYTES 8.3 % (1.0-8.0); PLATELET COUNT 239 thou/uL (150-400); POLYS 64.6 % (36.0-66.0); RDW 21.7 % (10.5-14.5); WBC 8.7 thou/uL (4.0-11.0)
[2020-04-23 22:03] LABS: CALCIUM 9.1 mg/dL (8.5-10.1); CREATININE 2.8 mg/dL (0.7-1.3); POTASSIUM 4.8 mmol/L (3.5-5.1)
[2020-04-23 22:13] LABS: ALBUMIN 2.5 g/dL (3.4-5.0); MAGNESIUM 2.4 mg/dL (1.8-2.4); PHOSPHORUS 3.9 mg/dL (2.6-4.7); TOTAL BILIRUBIN 0.6 mg/dL (0.2-1.0); TOTAL PROTEIN 7.1 g/dL (6.4-8.2); TROPONIN-I 0.06 ng/mL (<0.06)
[2020-04-24 00:10] LABS: URINE BILIRUBIN NEGATIVE (Negative); URINE BLOOD TRACE (Negative); URINE CLARITY SL CLOUDY; URINE COLOR YELLOW; URINE GLUCOSE-RANDOM* NEGATIVE (Negative); URINE KETONES NEGATIVE (Negative); URINE LEUKOCYTES-REFLEX 2+ (Negative); URINE NITRITE-REFLEX POSITIVE (Negative); URINE PROTEIN (DIPSTICK) TRACE (Negative); URINE SPECIFIC GRAVITY 1.025 (1.005-1.035); URINE UROBILINOGEN 0.2 E.U./dl (0.2-1.0)
[2020-04-24 00:19] LABS: AMP/METHAMP Negative (Negative); BARBITURATES Negative (Negative); BENZODIAZEPINES Negative (Negative); COCAINE Negative (Negative); METHADONE Negative (Negative); OPIATES Negative (Negative); PCP Negative (Negative)
[2020-04-24 00:23] LABS: BACTERIA-REFLEX >30 Many /HPF (None Seen); CELLULAR CASTS 0-3 Few /LPF (None Seen); CRYSTALS None Seen /LPF (None Seen); MUCUS >6 Heavy strn/LPF (None Seen); SQUAMOUS 0-3 Few /LPF (0-3); URINE RBC 0-2 Rare /HPF (0-2); YEAST-REFLEX Present (None Seen)
[2020-04-24 03:17] VITALS: BP 102/56
[2020-04-24] MEDS ORDERED: ELIQUIS5 MG PO (03:37)
[2020-04-24] MEDS ORDERED: ARICEPT 5 MG TAB5 MG PO (03:38)
[2020-04-24] MEDS ORDERED: COREG6.25 MG PO (03:39)
[2020-04-24] MEDS ORDERED: IRON325 PO (03:41)
[2020-04-24] MEDS ORDERED: FAMOTIDINE 20 M20 MG PO (03:41)
[2020-04-24] MEDS ORDERED: KEFLEX500 M1 PO (03:49)
[2020-04-24] MEDS ORDERED: CLARITIN10 M3 PO (03:56)
[2020-04-24] MEDS ORDERED: NOVOLOG100 UNIT/M SUBQ (03:57)
[2020-04-24] MEDS ORDERED: SANTYL OINTMENT30 G1 TOP (03:58)
--- NOTE | 2020-04-25 14:49 | EKG ---
[facility] [place] [address] ELECTROCARDIOGRAM REPORT Name: CASTRO RIZOBIE DAVID Room #: DEP [facility]#: [id number] Admission: 04/23/20 Attend Phys: Discharge: 04/24/20 Date of : 36 Report #: [id number] 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[employer] : 1940 Requested By: Freddie Gomez Order Number: [id number] MD: Alexander Evans Measurements Intervals [place] Rate: 79 P: 0 DE: 65 QRS: -10 QRSD: 153 T: 88 QT: 411 QTc: 472 Interpretive Statements Sinus rhythm Ventricular premature complex Short DE interval Right bundle branch block Artifact in lead(s) I,II,III,aVR,aVL,V1,V2,V3,V4,V5,V6 and baseline wander in lead (s) V3,V4 Compared to ECG 12/27/2018 15:04:54 Ventricular premature complex(es) now present Short DE interval now present First degree AV block no longer present Electronically Signed On 04-25-2020 14:48:52 INDEX EDITOR by Alexander Evans [email or web address] <ELECTRONICALLY SIGNED> By: Alexander Evans MD, [facility] 04/25/20 1448 26 232 Alexander Evans MD, [facility] /EPI
--- NOTE | 2020-04-25 14:49 | EKG ---
[place] [address] [place] [address] ELECTROCARDIOGRAM REPORT Name: CASTRO RIZOMIKAELA GUADALUPEE Room #: [facility]#: [id number] Admission: 04/23/20 Attend Phys: Discharge: 04/24/20 Date of : 36 Report #: [id number] [facility] ED Test Date: 2020-04-23 Test Time: 23:30:52 Pat Name: LUIS MANUEL RIZO Department: Room: Gender: M Clinical Informatics Physician: [facility] : 1940 Requested By: Alma Gates Order Number: [id number] MD: Alexander Evans Measurements Intervals [place] Rate: 79 P: 0 MI: 166 QRS: -31 QRSD: 129 T: 140 QT: 429 QTc: 492 Interpretive Statements Sinus rhythm Right bundle branch block Nonspecific T abnormalities, lateral leads Compared to ECG 04/23/2020 23:27:43 T-wave abnormality now present Ventricular premature complex(es) no longer present Short MI interval no longer present Electronically Signed On 04-25-2020 14:48:59 HAIRSPRING INSPECTOR by Alexander Evans [email or web address] <ELECTRONICALLY SIGNED> By: Alexander Evans MD, [facility] 04/25/20 1448 2330 2330 Alexander Evans MD, [facility] /EPI
== END 2020-04-24 04:46 | disposition home or self-care (01) ==
LOC: ER 20:29
PROVIDERS: Emergency Medicine
DX: U07.1 COVID-19 (principal); E11.649 Type 2 diabetes mellitus with hypoglycemia without coma; T38.3X5A Adverse effect of insulin and oral hypoglycemic [antidiabetic] drugs, initial encounter; R41.82 Altered mental status, unspecified; N39.0 Urinary tract infection, site not specified; E66.01 Morbid (severe) obesity due to excess calories; M19.90 Unspecified osteoarthritis, unspecified site; I13.0 Hypertensive heart and chronic kidney disease with heart failure and stage 1 through stage 4 chronic kidney disease, or unspecified chronic kidney disease; I50.9 Heart failure, unspecified; E11.22 Type 2 diabetes mellitus with diabetic chronic kidney disease; N18.30 Chronic kidney disease, stage 3 unspecified; E78.5 Hyperlipidemia, unspecified; I25.2 Old myocardial infarction; I25.10 Atherosclerotic heart disease of native coronary artery without angina pectoris; F03.90 Unspecified dementia, unspecified severity, without behavioral disturbance, psychotic disturbance, mood disturbance, and anxiety; Z68.39 Body mass index [BMI] 39.0-39.9, adult; Z98.61 Coronary angioplasty status; Z79.4 Long term (current) use of insulin; Z79.899 Other long term (current) drug therapy; Z79.82 Long term (current) use of aspirin; Z87.891 Personal history of nicotine dependence; Y92.128 Other place in nursing home as the place of occurrence of the external cause